=== PATIENT | female | born 1960 | race Two or more races ===

== ENCOUNTER 2020-04-04 13:09 | Outpatient (CLI) | payer OTHER | END 2020-04-04 13:27 | disposition home or self-care (01) | LOC: MRI 13:09 | PROVIDERS: ATTEND Orthopaedic Surgery | DX: M25.561 Pain in right knee (principal); M25.562 Pain in left knee | CPT/HCPCS: 73721 ==

== ENCOUNTER 2021-10-26 07:00 | Inpatient (IN) | payer OTHER ==
[~2021-10-26] VITALS: Ht 170.2 cm; Wt 79.4 kg
[2021-10-26] MEDS ORDERED: ZESTRIL40 M1 PO (09:13)
[2021-10-26] MEDS ORDERED: HYDROCHLOROTHIA25 MG PO (09:13)
[2021-10-30] MEDS ORDERED: VITAMIN D31250 MCG (08:48)
== END 2021-11-01 14:51 | DRG 470 ==
LOC: SURH 10-30 06:22 → O/R 10-30 06:22 → SURH 10-30 07:00
PROVIDERS: ADMIT Orthopaedic Surgery; ATTEND Orthopaedic Surgery
PROC: 0SRC0J9 Replacement of Right Knee Joint with Synthetic Substitute, Cemented, Open Approach (ICD-10-PCS; principal; 2021-10-30 17:30)
DX: M17.11 Unilateral primary osteoarthritis, right knee (principal); D62 Acute posthemorrhagic anemia; M85.661 Other cyst of bone, right lower leg

== ENCOUNTER 2023-04-15 08:00 | Inpatient (IN) | payer OTHER ==
[~2023-04-15] VITALS: Ht 170.2 cm; Wt 79.4 kg
[~2023-04-15 08:00] MED LIST: HYDROCHLOROTHIA25 MG PO; VITAMIN D31250 MCG; ZESTRIL40 M1 PO
[2023-04-24] MEDS ORDERED: NORFLEX100MG PO (12:37)
[2023-04-24] MEDS ORDERED: GABAPENTIN100 MG PO (12:38)
[2023-04-24] MEDS ORDERED: XARELTO10 MG PO (12:38)
[2023-04-24] MEDS ORDERED: OXYC1TAB9 PO (12:39)
== END 2023-04-24 16:38 | DRG 470 ==
LOC: O/R 04-22 06:30 → SURG 04-22 08:00 → OB/GYN 04-22 12:25 → SURG 04-22 13:30 → O/R 04-22 17:43 → SURG 04-22 17:44
PROVIDERS: ADMIT Orthopaedic Surgery; ATTEND Orthopaedic Surgery
PROC: 0SRD0JZ Replacement of Left Knee Joint with Synthetic Substitute, Open Approach (ICD-10-PCS; principal; 2023-04-22 13:30)
DX: M17.12 Unilateral primary osteoarthritis, left knee (principal); D62 Acute posthemorrhagic anemia; M85.662 Other cyst of bone, left lower leg; I10 Essential (primary) hypertension